=== PATIENT | male | born 1955 | race Caucasian/White ===

== ENCOUNTER 2019-01-15 08:07 | Inpatient (IN) | payer OTHER ==
[2019-01-15] MEDS ORDERED: SEVOFLURANE 15 MIN (09:00)
[2019-01-15] MEDS: LACTATED RINGER'S 1,000 ML IV (09:07)
[2019-01-15] MEDS ORDERED: PROPOFOL 20 ML (09:12)
[2019-01-15] MEDS ORDERED: ROCURONIUM 50 MG INJ (09:12)
[2019-01-15] MEDS ORDERED: CEFAZOLIN 1 GM INJ (09:12)
[2019-01-15] MEDS ORDERED: MIDAZOLAM 1 MG/ML 2 ML INJ (09:12)
[2019-01-15] MEDS ORDERED: EPHEDrine 25 MG/5 ML SYG IV (09:30)
[2019-01-15] MEDS ORDERED: OXYCODONE/ACETAMINOPHEN (5/325) TAB PO ×2 (09:30)
[2019-01-15] MEDS: CEFAZOLIN 2 GM/50 ML (PMX) 50 ML IVPB (09:30)
[2019-01-15] MEDS ORDERED: LABETALOL HCL 20MG INJ IV (09:30)
[2019-01-15] MEDS ORDERED: HYDROmorphONE 1 MG/5 ML IV SYRINGE IV (09:30)
[2019-01-15] MEDS ORDERED: DIPHENHYDRAMINE 50 MG INJ IV (09:30)
[2019-01-15] MEDS ORDERED: MEPERIDINE 25 MG INJ IV (09:30)
[2019-01-15] MEDS ORDERED: FENTAnyl 50 MCG/ML VIAL IV ×3 (09:30)
[2019-01-15] MEDS ORDERED: ONDANSETRON 4 MG INJ IV ×2 (09:30→13:30)
[2019-01-15] MEDS ORDERED: METOCLOPRAMIDE 10 MG INJ IV (09:30)
[2019-01-15] MEDS ORDERED: hydrALAzine 20 MG INJ IV (09:30)
[2019-01-15] MEDS ORDERED: THROMBIN 5000 UNIT (RECOTHROM) VIAL (10:45)
[2019-01-15] MEDS ORDERED: BUPIVACAINE 0.25%/EPI (SDV) 30 ML INJ (10:45)
[2019-01-15] MEDS ORDERED: GELATIN SIZE 100 SPONGE (10:45)
[2019-01-15] MEDS ORDERED: LABETALOL HCL 20MG INJ (11:06)
[2019-01-15] MEDS ORDERED: ONDANSETRON 4 MG INJ (11:28)
[2019-01-15] MEDS ORDERED: DEXAMETHASONE 4 MG/ML 5 ML INJ (11:28)
[2019-01-15] MEDS: BUPIVACAINE 0.25% (MPF) 30 ML INJ (11:28)
[2019-01-15] MEDS ORDERED: METOCLOPRAMIDE 10 MG INJ (11:28)
[2019-01-15] MEDS ORDERED: hydrALAzine 20 MG INJ (11:32)
[2019-01-15] MEDS ORDERED: EPHEDrine 25 MG/5 ML SYG (11:33)
[2019-01-15] MEDS ORDERED: PHENYLephrine (100 MCG/ML) 10ML SYG (11:33)
[2019-01-15] MEDS: POLYMYXIN/BACITRACIN 1L IRRIG (11:48)
[2019-01-15] MEDS ORDERED: SUGAMMADEX SODIUM 200 MG/2 ML VIAL IV (13:02)
[2019-01-15] MEDS ORDERED: ACETAMINOPHEN 325 MG TAB PO (13:30)
[2019-01-15] MEDS ORDERED: PROCHLORPERAZINE 10 MG TAB PO (13:30)
[2019-01-15] MEDS ORDERED: DIPHENHYDRAMINE 50 MG CAP PO (13:30)
[2019-01-15] MEDS ORDERED: TRIMETHOBENZAMIDE 100 MG/ML VIAL IM (13:30)
[2019-01-15] MEDS ORDERED: NALOXONE (0.4 MG/ML) INJ IV (13:30)
[2019-01-15] MEDS ORDERED: CEPASTAT LOZENGE MT (13:30)
[2019-01-15] MEDS ORDERED: HYDROCODONE/APAP (5/325) TAB PO (13:30)
[2019-01-15] MEDS ORDERED: ZOLPIDEM 5 MG TAB PO (13:30)
[2019-01-15] MEDS ORDERED: AL HYDROX/MG HYDROX/SIMETH 30 ML CUP PO (13:30)
[2019-01-15] MEDS ORDERED: NACL 0.9% 3 ML SYG IV (13:30)
[2019-01-15] MEDS ORDERED: DIAZEPAM 5 MG/ML SYG IM (13:30)
[2019-01-15] MEDS ORDERED: BETHANECHOL 25 MG TAB PO (13:30)
[2019-01-15] MEDS: HYDROmorphONE 1 MG/5 ML IV SYRINGE IV ×2 (13:34→13:58)
[2019-01-15] MEDS: HYDROmorphONE 0.2 MG/ML PCA IV (14:45)
[2019-01-15 15:59] LABS: ADD UMIC YES; UR ASCORBIC ACID 20 mg/dL (NEGATIVE); UR BILIRUBIN (Dip) NEGATIVE (NEGATIVE); UR BLOOD (Dip) 1+ mg/dL (NEGATIVE); UR CLARITY SLIGHTLY CLOUDY (CLEAR); UR COLOR YELLOW (YELLOW); UR GLUCOSE (Dip) NEGATIVE (NEGATIVE); UR KETONES (Dip) NEGATIVE (NEGATIVE); UR LEUKOCYTE ESTERASE (Dip) NEGATIVE Leu/ul (NEGATIVE); UR MUCUS FEW /HPF (NONE SEEN); UR NITRITE (Dip) NEGATIVE (NEGATIVE); UR RBC 70 /HPF (0-5); UR SPECIFIC GRAVITY (Dip) 1.023 (1.003-1.030); UR TOTAL PROTEIN (Dip) 2+ mg/dl (NEGATIVE); UR UROBILINOGEN (Dip) NEGATIVE (NEGATIVE); UR WBC 3 /HPF (0-5)
[2019-01-15] MEDS: DEXTROSE 5%-0.45% NACL 1,000 ML IV ×2 (16:43→23:21)
[2019-01-15] MEDS: CEFAZOLIN 1 GM/50 ML (PMX) 50 ML IVPB ×2 (18:55→23:45)
[2019-01-15] MEDS: PAROXETINE 20 MG TAB PO (18:58)
[2019-01-15] MEDS: RANITIDINE 150 MG TAB PO (20:58)
[2019-01-15] MEDS: ATORVASTATIN 20 MG TAB PO (20:59)
[2019-01-15] MEDS ORDERED: PAROXETINE 20 MG TAB PO (21:00)
[2019-01-16] MEDS: DIAZEPAM 5 MG TAB PO (03:00)
[2019-01-16] MEDS: DEXTROSE 5%-0.45% NACL 1,000 ML IV (03:41)
[2019-01-16 04:51] LABS: HEMATOCRIT 36.3 % (42.0-52.0); HEMOGLOBIN 11.8 g/dl (14.0-18.0)
[2019-01-16 05:14] LABS: ANION GAP 11 (5-13); BLOOD UREA NITROGEN 19 mg/dl (7-20); CARBON DIOXIDE 21 mmol/L (21-31); CHLORIDE 106 mmol/L (97-110); Estimated GFR > 60 mL/min (>60); GLUCOSE 149 mg/dl (70-220); POTASSIUM 4.1 mmol/L (3.5-5.1); SODIUM 138 mmol/L (135-144)
[2019-01-16] MEDS: PANTOPRAZOLE (EC) 40 MG TAB PO (06:40)
[2019-01-16] MEDS: LEVOTHYROXINE 125 MCG TAB PO (06:40)
[2019-01-16] MEDS: CEFAZOLIN 1 GM/50 ML (PMX) 50 ML IVPB ×2 (06:40→12:11)
[2019-01-16] MEDS: AMLODIPINE 2.5 MG TAB PO (08:30)
[2019-01-16] MEDS: FERROUS SULFATE (EC) 325 MG TAB PO ×2 (08:30→12:10)
[2019-01-16] MEDS: ASCORBIC ACID 500 MG TAB PO (08:30)
[2019-01-16] MEDS: RANITIDINE 150 MG TAB PO (08:30)
[2019-01-16] MEDS: BETHANECHOL 25 MG TAB PO (08:30)
[2019-01-16] MEDS: ASPIRIN (EC) 81 MG TAB PO (08:30)
[2019-01-16] MEDS: ATORVASTATIN 20 MG TAB PO (08:30)
[2019-01-16] MEDS: LORATADINE 10 MG TAB PO (08:31)
[2019-01-16] MEDS: DOCUSATE SODIUM 100 MG CAP PO (08:31)
[2019-01-16] MEDS: HYDROCODONE/APAP (5/325) TAB PO (09:01)
[2019-01-16] MEDS: LACTATED RINGER'S 1,000 ML IV (09:30)
[2019-01-16 10:58] LABS: ADD UMIC NO; UR ASCORBIC ACID NEGATIVE (NEGATIVE); UR BILIRUBIN (Dip) NEGATIVE (NEGATIVE); UR BLOOD (Dip) NEGATIVE (NEGATIVE); UR CLARITY CLEAR (CLEAR); UR COLOR COLORLESS (YELLOW); UR GLUCOSE (Dip) NEGATIVE (NEGATIVE); UR KETONES (Dip) NEGATIVE (NEGATIVE); UR LEUKOCYTE ESTERASE (Dip) NEGATIVE Leu/ul (NEGATIVE); UR NITRITE (Dip) NEGATIVE (NEGATIVE); UR SPECIFIC GRAVITY (Dip) 1.004 (1.003-1.030); UR TOTAL PROTEIN (Dip) NEGATIVE (NEGATIVE); UR UROBILINOGEN (Dip) NEGATIVE (NEGATIVE)
== END 2019-01-16 16:30 | disposition home or self-care (01) | DRG 517 ==
LOC: REC 08:07 → MS1 15:51
PROC: 01NB0ZZ Release Lumbar Nerve, Open Approach (ICD-10-PCS; principal; 2019-01-15 10:30)
DX: M48.061 Spinal stenosis, lumbar region without neurogenic claudication (principal); I10 Essential (primary) hypertension; E03.9 Hypothyroidism, unspecified; E78.5 Hyperlipidemia, unspecified; K21.9 Gastro-esophageal reflux disease without esophagitis; M54.16 Radiculopathy, lumbar region
CPT/HCPCS: 72020; 80048; 81001; 81003; 85014; 85018; 86850; 86900; 86901; 86920; 87086; 88304; 88311; 97116; 97161; 97530